=== PATIENT | female | born 1960 | race Caucasian/White ===

== ENCOUNTER → 2018-06-04 | Outpatient (CLI) | payer OTHER | END | disposition home or self-care (01) | LOC: HKI 10:48 | DX: Z01.818 Encounter for other preprocedural examination (principal); M16.0 Bilateral primary osteoarthritis of hip | CPT/HCPCS: 73502 ==

== ENCOUNTER 2018-06-19 05:25 | Inpatient (IN) | payer OTHER ==
[2018-06-19] MEDS: ONDANSETRON 4 MG INJ IV ×2 (06:06→12:09)
[2018-06-19] MEDS: ACETAMINOPHEN 1000MG/100ML IV 100 ML IVPB (06:06)
[2018-06-19] MEDS: GABAPENTIN 300 MG CAP PO ×2 (06:07→21:37)
[2018-06-19] MEDS: LACTATED RINGER'S 1,000 ML IV* ×2 (06:07→14:30)
[2018-06-19] MEDS: LANSOPRAZOLE 30 MG CAP PO (06:07)
[2018-06-19] MEDS: CELECOXIB 200 MG CAP PO (06:07)
[2018-06-19] MEDS ORDERED: ACETAMINOPHEN 500 MG TAB PO (06:30)
[2018-06-19] MEDS: TRANEXAMIC ACID 1GM/100ML(PMX) 100 ML AT CLOSING IVPB (06:30)
[2018-06-19] MEDS ORDERED: MIDAZOLAM 1 MG/ML 2 ML INJ (07:16)
[2018-06-19] MEDS ORDERED: GLYCOPYRROLATE 0.4 MG INJ (07:16)
[2018-06-19] MEDS ORDERED: CEFAZOLIN 1 GM INJ (07:16)
[2018-06-19] MEDS ORDERED: DEXAMETHASONE 4 MG/ML 5 ML INJ (07:16)
[2018-06-19] MEDS ORDERED: ONDANSETRON 4 MG INJ (07:16)
[2018-06-19] MEDS ORDERED: ROCURONIUM 50 MG INJ (07:16)
[2018-06-19] MEDS ORDERED: PROPOFOL 20 ML (07:16)
[2018-06-19] MEDS ORDERED: FENTAnyl 50 MCG/ML VIAL (07:16)
[2018-06-19] MEDS ORDERED: morphine SULFATE/PF (10 MG/10 ML) INJ (07:19)
[2018-06-19] MEDS: TRANEXAMIC ACID 1GM/100ML(PMX) 100 ML PRE-OP IVPB (07:28)
[2018-06-19] MEDS ORDERED: IPRATROPIUM (NEB) 0.5 MG/2.5 ML AMP HHN (07:30)
[2018-06-19] MEDS ORDERED: hydrALAzine 20 MG INJ IV (07:30)
[2018-06-19] MEDS ORDERED: NALBUPHINE HCL (10 MG/1 ML) INJ IV (07:30)
[2018-06-19] MEDS ORDERED: LABETALOL HCL 20MG INJ IV (07:30)
[2018-06-19] MEDS ORDERED: FENTAnyl 50 MCG/ML VIAL IV ×3 (07:30)
[2018-06-19] MEDS ORDERED: DIPHENHYDRAMINE 50 MG INJ IV ×2 (07:30→11:30)
[2018-06-19] MEDS ORDERED: OXYCODONE/ACETAMINOPHEN (5/325) TAB PO ×2 (07:30)
[2018-06-19] MEDS ORDERED: HYDROmorphONE 1 MG/5 ML IV SYRINGE IV ×3 (07:30)
[2018-06-19] MEDS ORDERED: MIDAZOLAM 1 MG/ML 2 ML INJ IV (07:30)
[2018-06-19] MEDS ORDERED: ALBUTEROL 0.083% (NEB) 2.5 MG/3 ML AMP HHN (07:30)
[2018-06-19] MEDS ORDERED: TRIMETHOBENZAMIDE 100 MG/ML VIAL IM ×2 (07:30)
[2018-06-19] MEDS ORDERED: NALOXONE (0.4 MG/ML) INJ IV ×2 (07:30→11:30)
[2018-06-19] MEDS ORDERED: HYDROmorphONE 0.5 MG/0.5 ML SYG IV ×2 (07:30)
[2018-06-19] MEDS ORDERED: ONDANSETRON 4 MG INJ IV ×2 (07:30→12:00)
[2018-06-19] MEDS ORDERED: LABETALOL HCL 20MG INJ ×2 (07:59→08:01)
[2018-06-19] MEDS: VANCOMYCIN 1 GM INJ (10:32)
[2018-06-19] MEDS ORDERED: ROPIVACAINE 0.5 % 30 ML VIAL (10:37)
[2018-06-19] MEDS ORDERED: SUGAMMADEX SODIUM 200 MG/2 ML VIAL IV (11:17)
[2018-06-19] MEDS ORDERED: SENNA/DOCUSATE NA (8.6MG/50MG) TAB PO (11:30)
[2018-06-19] MEDS ORDERED: MAGNESIUM HYDROXIDE 30ML CUP PO (11:30)
[2018-06-19] MEDS ORDERED: BISACODYL 10 MG SUPP PR (11:30)
[2018-06-19] MEDS ORDERED: NA PHOSPHATE/BIPHOS 133 ML ENEMA PR (11:30)
[2018-06-19] MEDS ORDERED: oxyCODONE 5 MG TAB PO (11:30)
[2018-06-19] MEDS ORDERED: BETHANECHOL 25 MG TAB PO (11:30)
[2018-06-19] MEDS ORDERED: NACL 0.9% 3 ML SYG IV (11:30)
[2018-06-19] MEDS: DIPHENHYDRAMINE 50 MG INJ IV (12:09)
[2018-06-19] MEDS: MEPERIDINE 25 MG INJ IV (12:09)
[2018-06-19] MEDS: DOCUSATE SODIUM 100 MG CAP PO (12:29)
[2018-06-19] MEDS: PERMETHRIN 5% 60 GM CR TOP ×2 (12:30→23:42)
[2018-06-19] MEDS ORDERED: ALBUMIN HUMAN 5% 250 ML (12:55)
[2018-06-19] MEDS: ALBUMIN HUMAN 5% 250 ML IV (13:06)
[2018-06-19] MEDS: LACTATED RINGER'S 1,000 ML IV (13:08)
[2018-06-19 13:11] LABS: ADD MAN DIFF? NO
[2018-06-19 13:13] LABS: BASOPHILS % 0.3 % (0.0-2.0); EOSINOPHILS # 0.1 10^3/ul (0.0-0.5); EOSINOPHILS % 0.9 % (0.0-7.0); HEMATOCRIT 29.9 % (37.0-47.0); HEMOGLOBIN 9.8 g/dl (12.0-16.0); LYMPHOCYTES # 1.2 10^3/ul (0.8-2.9); LYMPHOCYTES % 17.3 % (15.0-51.0); MEAN CORPUSCULAR HEMOGLOBIN 31.1 pg (29.0-33.0); MEAN CORPUSCULAR HGB CONC 32.8 g/dl (32.0-37.0); MEAN CORPUSCULAR VOLUME 94.9 fl (82.0-101.0); MONOCYTE # 0.5 10^3/ul (0.3-0.9); MONOCYTES % 7.4 % (0.0-11.0); NEUTROPHIL # 4.9 10^3/ul (1.6-7.5); NEUTROPHILS % 73.5 % (39.0-77.0); PLATELET COUNT 143 10^3/UL (140-415); RED BLOOD COUNT 3.15 10^6/ul (4.20-5.40)
[2018-06-19 13:13] LABS: WHITE BLOOD COUNT 6.7 10^3/ul (4.8-10.8)
[2018-06-19] MEDS: EPHEDrine SULFATE 50 MG/5 ML SYG IV (13:23)
[2018-06-19 13:34] LABS: HOLD TRANSMISSIONS 1
[2018-06-19] MEDS: SOD CHLORIDE 0.9% 1,000 ML IV ×3 (13:43→22:23)
[2018-06-19 13:45] LABS: ALANINE AMINOTRANSFERASE 17 IU/L (13-69); ALBUMIN 2.8 g/dl (3.3-4.9); ALBUMIN/GLOBULIN RATIO 1.16; ALKALINE PHOSPHATASE 57 IU/L (42-121); ANION GAP 5 (5-13); ASPARTATE AMINO TRANSFERASE 18 IU/L (15-46); BILIRUBIN,INDIRECT 0.1 mg/dl (0-1.1); BILIRUBIN,TOTAL 0.1 mg/dl (0.2-1.3); BLOOD UREA NITROGEN 9 mg/dl (7-20); CALCIUM 8.8 mg/dl (8.4-10.2); CARBON DIOXIDE 26 mmol/L (21-31); CHLORIDE 110 mmol/L (97-110); CREATININE 0.52 mg/dl (0.44-1.00); Estimated GFR > 60 mL/min (>60); GLUCOSE 98 mg/dl (70-220); MAGNESIUM 1.7 mg/dl (1.7-2.5); SODIUM 141 mmol/L (135-144); TOTAL PROTEIN 5.2 g/dl (6.1-8.1)
[2018-06-19] MEDS: ACETAMINOPHEN 500 MG TAB PO ×2 (14:00→21:48)
[2018-06-19] MEDS ORDERED: NORepinephrine 8MG/250 ML (PMX 250 ML IV (15:00)
[2018-06-19] MEDS ORDERED: CEFAZOLIN 2 GM/50 ML (PMX) 50 ML IVPB (15:00)
[2018-06-19] MEDS: SOD CHLORIDE 0.9% 500 ML IV (15:30)
[2018-06-19 15:50] LABS: LACTIC ACID 1.4 mmol/L (0.5-2.0)
[2018-06-19] MEDS: PIPER-TAZO 3.375 GM IV (PMX) 100 ML IVPB ×2 (18:24→23:42)
[2018-06-19] MEDS ORDERED: ZOLPIDEM 5 MG TAB PO (21:00)
[2018-06-19] MEDS: SOD CHLORIDE 0.9% 250 ML IV (22:24)
[2018-06-20 02:12] LABS: ADD UMIC NO; UR ASCORBIC ACID NEGATIVE (NEGATIVE); UR BILIRUBIN (Dip) NEGATIVE (NEGATIVE); UR BLOOD (Dip) NEGATIVE (NEGATIVE); UR CLARITY CLEAR (CLEAR); UR COLOR YELLOW (YELLOW); UR GLUCOSE (Dip) NEGATIVE (NEGATIVE); UR KETONES (Dip) NEGATIVE (NEGATIVE); UR LEUKOCYTE ESTERASE (Dip) NEGATIVE Leu/ul (NEGATIVE); UR NITRITE (Dip) NEGATIVE (NEGATIVE); UR SPECIFIC GRAVITY (Dip) 1.011 (1.003-1.030); UR TOTAL PROTEIN (Dip) NEGATIVE (NEGATIVE); UR UROBILINOGEN (Dip) NEGATIVE (NEGATIVE)
[2018-06-20 05:22] LABS: ADD MAN DIFF? NO
[2018-06-20] MEDS: PANTOPRAZOLE (EC) 40 MG TAB PO (05:25)
[2018-06-20] MEDS: PIPER-TAZO 3.375 GM IV (PMX) 100 ML IVPB ×4 (05:25→23:39)
[2018-06-20] MEDS: ACETAMINOPHEN 500 MG TAB PO (05:26)
[2018-06-20 05:40] LABS: ABNORMAL IP MESSAGE 1; BASOPHILS % 0.1 % (0.0-2.0); HEMATOCRIT 28.7 % (37.0-47.0); HEMOGLOBIN 9.4 g/dl (12.0-16.0); LYMPHOCYTES # 0.6 10^3/ul (0.8-2.9); LYMPHOCYTES % 5.3 % (15.0-51.0); MEAN CORPUSCULAR HEMOGLOBIN 30.9 pg (29.0-33.0); MEAN CORPUSCULAR HGB CONC 32.8 g/dl (32.0-37.0); MEAN CORPUSCULAR VOLUME 94.4 fl (82.0-101.0); MONOCYTE # 0.9 10^3/ul (0.3-0.9); MONOCYTES % 8.3 % (0.0-11.0); NEUTROPHIL # 9.4 10^3/ul (1.6-7.5); NEUTROPHILS % 85.8 % (39.0-77.0); PLATELET COUNT 159 10^3/UL (140-415); RED BLOOD COUNT 3.04 10^6/ul (4.20-5.40); RED CELL DISTRIBUTION WIDTH 12.2 % (11.5-14.5)
[2018-06-20 05:40] LABS: WHITE BLOOD COUNT 10.9 10^3/ul (4.8-10.8)
[2018-06-20 06:08] LABS: INR 1.09; PROTIME 14.2 Sec (11.9-14.9); PT RATIO 1.1
[2018-06-20 06:12] LABS: POSITIVE DIFF @See below
[2018-06-20] MEDS: SOD CHLORIDE 0.9% 1,000 ML IV ×3 (06:25→22:39)
[2018-06-20 06:36] LABS: ANION GAP 5 (5-13); BLOOD UREA NITROGEN 10 mg/dl (7-20); CALCIUM 8.9 mg/dl (8.4-10.2); CARBON DIOXIDE 23 mmol/L (21-31); CHLORIDE 112 mmol/L (97-110); CREATININE 0.56 mg/dl (0.44-1.00); Estimated GFR > 60 mL/min (>60); GLUCOSE 135 mg/dl (70-220); POTASSIUM 4.7 mmol/L (3.5-5.1); SODIUM 140 mmol/L (135-144)
[2018-06-20] MEDS: DOCUSATE SODIUM 100 MG CAP PO ×2 (08:31→21:07)
[2018-06-20] MEDS: ASPIRIN (EC) 81 MG TAB PO ×2 (08:31→21:07)
[2018-06-20] MEDS ORDERED: ONDANSETRON 4 MG INJ IV (11:30)
[2018-06-20] MEDS: GABAPENTIN 300 MG CAP PO (21:07)
[2018-06-20] MEDS: HYDROmorphONE 1 MG/ML SYG IV (21:18)
[2018-06-21 05:04] LABS: ADD MAN DIFF? NO
[2018-06-21 05:12] LABS: BASOPHILS % 0.3 % (0.0-2.0); EOSINOPHILS % 0.6 % (0.0-7.0); HEMATOCRIT 26.2 % (37.0-47.0); HEMOGLOBIN 8.5 g/dl (12.0-16.0); LYMPHOCYTES # 1.5 10^3/ul (0.8-2.9); LYMPHOCYTES % 22.6 % (15.0-51.0); MEAN CORPUSCULAR HEMOGLOBIN 31.1 pg (29.0-33.0); MEAN CORPUSCULAR HGB CONC 32.4 g/dl (32.0-37.0); MEAN PLATELET VOLUME 10.5 fl (7.4-10.4); MONOCYTE # 0.7 10^3/ul (0.3-0.9); MONOCYTES % 10.3 % (0.0-11.0); NEUTROPHIL # 4.4 10^3/ul (1.6-7.5); NEUTROPHILS % 65.9 % (39.0-77.0); PLATELET COUNT 148 10^3/UL (140-415); RED BLOOD COUNT 2.73 10^6/ul (4.20-5.40); RED CELL DISTRIBUTION WIDTH 12.7 % (11.5-14.5)
[2018-06-21 05:12] LABS: WHITE BLOOD COUNT 6.6 10^3/ul (4.8-10.8)
[2018-06-21 05:30] LABS: INR 1.14; PROTIME 14.7 Sec (11.9-14.9); PT RATIO 1.1
[2018-06-21] MEDS: PIPER-TAZO 3.375 GM IV (PMX) 100 ML IVPB (05:30)
[2018-06-21] MEDS: PANTOPRAZOLE (EC) 40 MG TAB PO (05:31)
[2018-06-21 05:34] LABS: ANION GAP 3 (5-13); BLOOD UREA NITROGEN 9 mg/dl (7-20); CALCIUM 8.9 mg/dl (8.4-10.2); CARBON DIOXIDE 25 mmol/L (21-31); CHLORIDE 115 mmol/L (97-110); Estimated GFR > 60 mL/min (>60); GLUCOSE 92 mg/dl (70-220); POTASSIUM 3.9 mmol/L (3.5-5.1); SODIUM 143 mmol/L (135-144)
[2018-06-21] MEDS: ASPIRIN (EC) 81 MG TAB PO ×2 (08:55→20:50)
[2018-06-21] MEDS: DOCUSATE SODIUM 100 MG CAP PO ×2 (08:55→20:50)
[2018-06-21] MEDS: oxyCODONE 5 MG TAB PO (10:10)
[2018-06-21] MEDS: GABAPENTIN 300 MG CAP PO (20:50)
[2018-06-21] MEDS: ACETAMINOPHEN 325 MG TAB PO (20:50)
[2018-06-21 21:50] LABS: ADD UMIC NO; UR ASCORBIC ACID NEGATIVE (NEGATIVE); UR BILIRUBIN (Dip) NEGATIVE (NEGATIVE); UR BLOOD (Dip) NEGATIVE (NEGATIVE); UR CLARITY CLEAR (CLEAR); UR COLOR YELLOW (YELLOW); UR GLUCOSE (Dip) NEGATIVE (NEGATIVE); UR KETONES (Dip) NEGATIVE (NEGATIVE); UR LEUKOCYTE ESTERASE (Dip) NEGATIVE Leu/ul (NEGATIVE); UR NITRITE (Dip) NEGATIVE (NEGATIVE); UR SPECIFIC GRAVITY (Dip) 1.005 (1.003-1.030); UR TOTAL PROTEIN (Dip) NEGATIVE (NEGATIVE); UR UROBILINOGEN (Dip) 2+ mg/dL (NEGATIVE)
[2018-06-22 05:24] LABS: ADD MAN DIFF? NO
[2018-06-22 05:35] LABS: BASOPHILS % 0.4 % (0.0-2.0); EOSINOPHILS # 0.2 10^3/ul (0.0-0.5); EOSINOPHILS % 2.2 % (0.0-7.0); HEMATOCRIT 27.2 % (37.0-47.0); HEMOGLOBIN 8.9 g/dl (12.0-16.0); LYMPHOCYTES # 2.1 10^3/ul (0.8-2.9); LYMPHOCYTES % 28.9 % (15.0-51.0); MEAN CORPUSCULAR HEMOGLOBIN 31.3 pg (29.0-33.0); MEAN CORPUSCULAR HGB CONC 32.7 g/dl (32.0-37.0); MEAN CORPUSCULAR VOLUME 95.8 fl (82.0-101.0); MEAN PLATELET VOLUME 11.2 fl (7.4-10.4); MONOCYTE # 0.8 10^3/ul (0.3-0.9); MONOCYTES % 10.7 % (0.0-11.0); NEUTROPHIL # 4.1 10^3/ul (1.6-7.5); NEUTROPHILS % 57.4 % (39.0-77.0); PLATELET COUNT 147 10^3/UL (140-415); RED BLOOD COUNT 2.84 10^6/ul (4.20-5.40); RED CELL DISTRIBUTION WIDTH 12.4 % (11.5-14.5)
[2018-06-22 05:35] LABS: WHITE BLOOD COUNT 7.2 10^3/ul (4.8-10.8)
[2018-06-22] MEDS: PANTOPRAZOLE (EC) 40 MG TAB PO (05:50)
[2018-06-22 05:53] LABS: INR 1.05; PROTIME 13.8 Sec (11.9-14.9); PT RATIO 1.1
[2018-06-22] MEDS: oxyCODONE 5 MG TAB PO ×2 (05:53→10:17)
[2018-06-22 06:03] LABS: ANION GAP 5 (5-13); BLOOD UREA NITROGEN 5 mg/dl (7-20); CALCIUM 8.7 mg/dl (8.4-10.2); CARBON DIOXIDE 27 mmol/L (21-31); CHLORIDE 112 mmol/L (97-110); CREATININE 0.57 mg/dl (0.44-1.00); Estimated GFR > 60 mL/min (>60); GLUCOSE 81 mg/dl (70-220); SODIUM 144 mmol/L (135-144)
[2018-06-22] MEDS: DOCUSATE SODIUM 100 MG CAP PO (08:30)
[2018-06-22] MEDS: ASPIRIN (EC) 81 MG TAB PO (08:30)
== END 2018-06-22 19:17 | disposition home health service (06) | DRG 470 ==
LOC: REC 05:25 → MS1 06-20 22:13 → ICU 16:38
PROC: 0SRB04A Replacement of Left Hip Joint with Ceramic on Polyethylene Synthetic Substitute, Uncemented, Open Approach (ICD-10-PCS; principal; 2018-06-19 07:28)
DX: M16.12 Unilateral primary osteoarthritis, left hip (principal); I95.9 Hypotension, unspecified; R21 Rash and other nonspecific skin eruption
CPT/HCPCS: 71045; 72170; 73500; 73530; 80048; 80053; 81003; 83605; 83735; 85025; 85610; 86850; 86900; 86901; 87040-91; 87081; 87086; 88304; 88311; 97110; 97116; 97163; 97165; 97530